=== PATIENT | female | born 1950 | race Caucasian/White ===

== ENCOUNTER 2019-03-12 13:08 | Emergency (ER) | payer MEDICARE, MEDICAID ==
[~2019-03-12] VITALS: Ht 157.5 cm; Wt 55.8 kg
[~2019-03-12 13:08] MED LIST: ATEN-60 OR; LEVO125T7 OR
[2019-03-12 13:23] VITALS: BP 161/77
== END 2019-03-12 14:49 | disposition left against medical advice (07) ==
LOC: ER 13:13
DX: I10 Essential (primary) hypertension (principal); Z53.21 Procedure and treatment not carried out due to patient leaving prior to being seen by health care provider
CPT/HCPCS: 71046; 93005

== ENCOUNTER 2021-03-03 14:02 | Emergency (ER) | payer MEDICARE, MEDICAID ==
[~2021-03-03] VITALS: Ht 157.5 cm; Wt 58.1 kg
[2021-03-03 14:05] VITALS: BP 146/88
== END 2021-03-03 15:15 | disposition home or self-care (01) ==
LOC: ER 14:02
DX: I10 Essential (primary) hypertension (principal); F41.9 Anxiety disorder, unspecified; Z88.0 Allergy status to penicillin; Z79.899 Other long term (current) drug therapy